=== PATIENT | male | born 1975 | race Caucasian/White ===

== ENCOUNTER 2017-04-05 11:47 | Emergency (ER) | payer OTHER ==
[~2017-04-05] VITALS: Ht 182.9 cm; Wt 106.2 kg
[~2017-04-05 11:47] MED LIST: ASPI81CH2 PO; ATEN-174 PO; BACL10TA PO; BUPR100T8 PO; DICL50TA3 PO; DICY10CA55 PO; HYDR25CA PO; LOVA10TA3 PO; OMEP20TA PO; PROM25TA9 PO
[2017-04-05 11:53] VITALS: TEMP 36.9; Ht 182.9 cm; Wt 106.2 kg
[2017-04-05] MEDS ORDERED: PROPARACAINE HCL 0.5% OP SOLN 15 ML BTL OP STA (12:09)
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
[2017-04-05] MEDS ORDERED: PrednisoLONE ACET 1% OP SUSP 5 ML BTL OP STA (13:36)
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
[2017-04-05 13:59] VITALS: BP 135/62; PULSE 54; O2SAT 96
== END 2017-04-05 13:55 | disposition home or self-care (01) ==
LOC: C.EDB 11:50 → C.EDD 13:55
DX: H20.9 Unspecified iridocyclitis (principal); W51.XXXA Accidental striking against or bumped into by another person, initial encounter; Z87.891 Personal history of nicotine dependence; Z79.82 Long term (current) use of aspirin